=== PATIENT | female | born 1970 | race Asian ===

== ENCOUNTER 2022-08-10 09:08 | Emergency (ER) | payer OTHER, SELFPAY ==
[2022-08-10 09:36] VITALS: BP 138/74; PULSE 73; RESP 15; TEMP 36.4; O2SAT 100; BMI 22.3
--- NOTE | 2022-08-10 09:49 | ED_ITS ---
HPI - Abdominal Pain General Chief Complaint: Abdominal Pain Stated Complaint: pain in upper ABD Time Seen by Provider: 08/10/22 09:32 Source: patient Mode of arrival: Ambulatory History of Present Illness HPI narrative: 52-year-old female nonsmoker without chronic medical problems presents with a chief complaint of a crampy type upper abdominal pain with radiation to her back started just before 8:00 a.m. this morning. She states it is worse when she moves and seems to improve with rest. She was able to drink some water and did not seem to affect her symptoms whatsoever. She denies any history of the same. She denies any chest pain or shortness of breath. She is had no nausea, vomiting nor diarrhea or constipation. She denies any significant alterations in her diet, recent travel, injury or history of blood clot. She denies any exertional symptoms nor intolerance of exercise. Related Data Previous Rx's Medication Instructions Recorded pantoprazole 40 mg tablet,delayed 40 mg PO DAILY #30 tabs 08/10/22 release (Protonix) Allergies Allergy/AdvReac Type Severity Reaction Status Date / Time No Known Drug Allergies Allergy Verified 08/10/22 09:36 Review of Systems Review of Systems Narrative: GENERAL: Denies chills, fatigue, malaise, fever, sweats. HEENT: Denies sinus pain, ear pain, sore throat, difficulty swallowing, dizziness. RESPIRATORY: Denies dyspnea, cough, wheezing, hemoptysis, sputum. CARDIOVASCULAR: Denies chest pain, palpitations, orthopnea, edema, GASTROINTESTINAL: See HPI : Denies dysuria, frequency, incontinence, hematuria, urinary retention. MUSCULOSKELETAL: denies weakness, joint pain, or bony pain SKIN: Denies rash, skin lesions, or other NEUROLOGIC: Denies weakness, headache, numbness, change in speech, confusion, seizures, incoordination. PSYCHIATRIC: No concerning psychosocial issues. 12 point review of systems is negative except for those stated above Exam Narrative Exam Narrative: GENERAL: [52] year old patient appears stated age. Well-developed patient, in mild distress. HEAD: Atraumatic. Normocephalic. EYES: Pupils equal round and reactive. Extraocular motions intact. No scleral icterus. No injection or drainage. ENT: Nose without bleeding, purulent drainage. Throat without erythema, tonsillar hypertrophy or exudate. Airway patent. NECK: Trachea midline. Non tender CARDIOVASCULAR: Regular rate and rhythm without murmurs, gallops, or rubs. RESPIRATORY: Clear to auscultation. Breath sounds equal bilaterally. No wheezes, rales, or rhonchi. GASTROINTESTINAL: Abdomen soft, non-tender, nondistended. EXTREMITIES: No edema or joint tenderness. BACK: Nontender without deformity or crepitance. No flank tenderness. NEURO: AOx3. SKIN: No rash or erythema of visible areas Initial Vital Signs Initial Vital Signs: Vital Signs Temperature 97.5 F L 08/10/22 09:36 Pulse Rate 73 08/10/22 09:36 Respiratory Rate 15 08/10/22 09:36 Blood Pressure 138/74 08/10/22 09:36 Pulse Oximetry 100 08/10/22 09:36 Oxygen Delivery Method 08/10/22 09:36 Course Orders Ordered: Discontinued Medications Al Hydrox/Mg Hydrox/Simethicone 20 ml/ Lidocaine HCl 15 ml 0 ml PO NOW ONE Stop: 08/10/22 09:55 Last Admin: 08/10/22 10:03 Dose: 35 ml Documented By: BRODY Sodium Chloride (Normal Saline 0.9%) 1,000 mls @ 1,000 mls/hr IV BOLUS ONE Stop: 08/10/22 10:53 Last Infusion: 08/10/22 11:40 Dose: 0 mls/hr Documented By: Admin: 08/10/22 10:04 Dose: 1,000 mls/hr Documented By: BRODY Pantoprazole Sodium (Pantoprazole 40 Mg Vial) 40 mg IV NOW ONE Stop: 08/10/22 09:55 Last Admin: 08/10/22 10:03 Dose: 40 mg Documented By: BRODY Reevaluation(s) Reevaluation #1: Improvement after GI cocktail and Protonix Vital Signs Vital signs: Vital Signs - 8 hr 08/10/22 09:36 08/10/22 10:49 08/10/22 11:00 Temperature 97.5 F L Pulse Rate 73 62 Respiratory Rate 15 20 Blood Pressure 138/74 145/77 H Pulse Oximetry 100 100 Oxygen Delivery Method Room Air 08/10/22 11:00 Temperature Pulse Rate 61 Respiratory Rate Blood Pressure Pulse Oximetry 99 Oxygen Delivery Method MDM - Abdominal Pain Lab Data Result diagrams: 08/10/22 09:50 08/10/22 09:50 Labs: Lab Results 08/10/22 08/10/22 08/10/22 Range/Units 09:50 09:50 09:50 WBC 6.2 (4.5-11.0) X10^3/uL RBC 4.44 (4.0-5.2) X10^6/uL Hgb 13.9 (12.0-16.0) g/dL Hct 40.5 (36-46) % MCV 91.2 (80-100) fL MCH 31.3 (26-34) PG MCHC 34.4 (30-36) % RDW 12.9 (11.6-14.8) % Plt Count 319 (150-400) X10^3/uL Neut % (Auto) 71.3 (50-75) % Lymph % (Auto) 14.2 L (25-40) % [place] % (Auto) 10.0 (3-14) % Eos % (Auto) 3.8 (2-4) % Baso % (Auto) 0.7 (0-2) % Neut # (Auto) 4400 (5093-6841) /uL Lymph # (Auto) 900 L (8900-4259) /uL [facility] # (Auto) 600 (0-900) /uL Eos # (Auto) 200 (0-450) /uL Baso # (Auto) 0 (0-100) /uL Sodium 136 L (137-145) mmol/L Potassium 4.0 (3.4-5.1) mmol/L Chloride 98 (98-107) mmol/L Carbon Dioxide 28 (22-32) mmol/L BUN 12 (7-17) mg/dL Creatinine 0.80 (0.52-1.04) mg/dL Estimated GFR > 60 (>60) mL/min BUN/Creatinine Ratio 15.0 (6-22) Glucose 97 (70-100) mg/dL Calcium 9.2 (8.4-10.2) mg/dL Total Bilirubin 0.8 (0.2-1.3) mg/dL AST 37 H (14-36) IU/L ALT 25 (<35) IU/L Alkaline Phosphatase 70 (38-126) U/L Total Creatine Kinase 127 (30-135) U/L CK-MB (CK-2) 0.99 (<2.37) ng/mL CK-MB (CK-2) Rel Index 0.8 L (1.5-5.0) % Troponin I < 0.012 (0.01-0.034) ng/mL Total Protein 9.1 H (6.3-8.2) g/dL Albumin 4.8 (3.5-5.0) g/dL Globulin 4.3 H (1.7-4.1) g/dL Albumin/Globulin Ratio 1.1 (1.0-2.8) Lipase 63 (23-300) U/L Point of care testing: Urine Dip Bedside Urine Glucose Negative Bedside Urine Bilirubin - Negative Bedside Urine Ketone - Negative Urine Specific [place] 1.005 Bedside Urine Occult Blood - Negative Bedside Urine pH 6.5 Bedside Urine Protein - Negative Bedside Urine Urobilinogen - Negative Bedside Urine Nitrite - Negative Bedside Urine Leukocytes - Negative Esterase Imaging Data US - abdomen: Radiologist's Impression: [address] [address] Ultrasound Report Signed Patient: Thea Matute MR#: [id number] : 1970 Acct:[id number] Age/Sex: 52 / F Date of Service: 08/10/22 Loc: ED Accession Number: [id number] ?? Procedure: US abdomen limited Ordering Provider: Fracisco Leyva D.O. PROCEDURE:? US ABDOMEN LIMITED ? INDICATIONS:? epigastric pain ? TECHNIQUE:? Real-time scanning was performed of the abdominal and retroperitoneal organs, with image documentation.? ? COMPARISON:? None. ? FINDINGS:? ? Liver:? Liver is normal in size and homogeneous in echotexture.? ? Gallbladder:? The gallbladder wall measures 2 mm in diameter.? 3 polyps are visualized within the gallbladder fundus, the largest of which measures 8 x 7 x 9 mm.? No pericholecystic fluid or sonographic Ruffin sign.? ? Biliary ducts:? Intrahepatic bile ducts are non-dilated.? Extrahepatic bile duct caliber measures 4 mm.? Normal is 6-7 mm or less in diameter, or 10 mm or less post-cholecystectomy.? ? Pancreas:? Visualized portions of the pancreas are sonographically normal.? ? IMPRESSION:? Gallbladder polyps, the largest of which measures up to 9 mm in diameter.? Annual sonographic follow-up recommended.? Additionally, surgical consultation could be considered for prophylactic cholecystectomy.? No findings to suggest acute cholecystitis or choledocholithiasis. ? Dictated by: Martina Jain M.D. on 08/10/2022 at 11:58 ? ? Approved by: Martina Jain M.D. on 08/10/2022 at 12:05 ? Abdominal x-ray: Radiologist's Impression: [address] [address] XRay Report Signed Patient: Thea Matute MR#: [id number] : 1970 Acct:[id number] Age/Sex: 52 / F Date of Service: 08/10/22 Loc: ED Accession Number: [id number] ?? Procedure: XR acute abdomen series Ordering Provider: Fracisco Leyva D.O. PROCEDURE:? XR ACUTE ABDOMEN SERIES ? INDICATIONS:? abdominal pain, epigastric, colicky ? TECHNIQUE:? One view chest and two views of the abdomen were acquired.? ? COMPARISON:? None. ? FINDINGS:? ? Surgical changes and devices:? None.? ? Chest:? Lungs are clear.? Heart size is normal.? No pleural effusions.? No pneumoperitoneum.? ? Abdomen:? Bowel gas pattern is normal.? No suspicious calcifications.? Visualized solid organ contours appear normal.? ? Bones:? No suspicious bony lesions.? ? IMPRESSION:? No acute cardiopulmonary or intra-abdominal findings. ? ? Dictated by: Martina Jain M.D. on 08/10/2022 at 13:14 ? ? Approved by: Martina Jain M.D. on 08/10/2022 at 13:14 ? [facility] Narrative Medical decision making narrative: 52-year-old female without chronic medical history presents with epigastric pain Multiple etiologies for patient's symptoms considered include, but not limited to: [Bowel obstruction versus kidney stone versus diverticulitis versus gallbladder disease versus pancreatitis versus GI intolerance of antibiotics Patient's symptoms improved over duration of stay with above-stated therapies. History, physical exam, labs, imaging, and response to therapies have been reassuring. Ultrasound demonstrates no obvious cholecystitis or stones but does mentioned a rather large polyp Acute abdominal series demonstrates no obstructive process Findings and discharge diagnosis discussed with patient/family followed by verbalization of understanding Return precautions discussed with patient/family whom verbalize understanding. Pain has been well controlled and patient is tolerating oral hydration. Discharge Plan Departure Patient Disposition: Home Clinical Impression: Acute epigastric pain Instructions: DI for Epigastric Pain Activity Restrictions/Additional Instructions: *You have been diagnosed with [abdominal pain] * As we discussed your history and physical exam as well as labs and imaging are very reassuring. There is no evidence of any severe diagnoses that would require a specific or immediate intervention. *What to do: *Please continue to take your regular medications as directed. * *Please follow up with your primary care provider in 2-3 days, call for an appointment. Let them know you were seen in the Emergency Department and that we ask that you be seen in follow up. We will electronically transmit a record of today's note if your PCP is in our system *Please consider a clear liquid diet for the next 24-48 hours and then slowly advance to regular as tolerated. Also, try to avoid alcohol, nicotine, caffeine, spicy, acidic or fatty foods as this may worsen your symptoms *If you do not have a primary care provider please contact the [facility] Resource line at [phone]. They will ask some questions about your medical history and help get you set up with a doctor in the community. *Return to Emergency Department if you should have any new, worsening or concerning symptoms, such as [fever greater than 101 F, shaking chills, worsening pain, persistent vomiting or other bothersome symptoms] Prescriptions: New pantoprazole [Protonix] 40 mg tablet,delayed release (DR/EC) 40 mg PO DAILY Qty: 30 0RF Referrals: Dilshad Downey MD [Physician] - Miscellaneous,MD Gerard [Primary Care Provider] - Visit Report Forms: Patient Portal/API
[2022-08-10 09:59] LABS: Add Manual Diff / Slide Review NO; Basophils Absolute Auto 0 /uL (0-100); Basophils Percent Auto 0.7 % (0-2); Eosinophils Absolute Auto 200 /uL (0-450); Eosinophils Percent Auto 3.8 % (2-4); Hematocrit 40.5 % (36-46); Hemoglobin 13.9 g/dL (12.0-16.0); Lymphocytes Absolute Auto 900 /uL (1100-4500); Lymphocytes Percent Auto 14.2 % (25-40); Mean Corpuscular HGB Conc 34.4 % (30-36); Mean Corpuscular Hemoglobin 31.3 PG (26-34); Mean Corpuscular Volume 91.2 fL (80-100); Monocytes Absolute Auto 600 /uL (0-900); Neutrophils Absolute Auto 4400 /uL (1500-7000); Neutrophils Percent Auto 71.3 % (50-75); Platelet Count 319 X10^3/uL (150-400); Red Blood Cell Count 4.44 X10^6/uL (4.0-5.2); Red Cell Distribution Width 12.9 % (11.6-14.8); White Blood Cell Count 6.2 X10^3/uL (4.5-11.0)
[2022-08-10] MEDS: PANTOPRAZOLE 40 MG VIAL IV (10:03)
[2022-08-10] MEDS: MAG HYDROX/ALUMINUM/SIMETH SUS 20 ML, LIDOCAINE VISCOUS 2% 15 ML PO (10:03)
[2022-08-10] MEDS: SODIUM CHLORIDE 0.9% 1,000 ML 1000 ML IV (10:04)
--- NOTE | 2022-08-10 10:07 | DI.US.S_ITS ---
PROCEDURE: US ABDOMEN LIMITED INDICATIONS: epigastric pain TECHNIQUE: Real-time scanning was performed of the abdominal and retroperitoneal organs, with image documentation. COMPARISON: None. FINDINGS: Liver: Liver is normal in size and homogeneous in echotexture. Gallbladder: The gallbladder wall measures 2 mm in diameter. 3 polyps are visualized within the gallbladder fundus, the largest of which measures 8 x 7 x 9 mm. No pericholecystic fluid or sonographic Ruffin sign. Biliary ducts: Intrahepatic bile ducts are non-dilated. Extrahepatic bile duct caliber measures 4 mm. Normal is 6-7 mm or less in diameter, or 10 mm or less post-cholecystectomy. Pancreas: Visualized portions of the pancreas are sonographically normal. IMPRESSION: Gallbladder polyps, the largest of which measures up to 9 mm in diameter. Annual sonographic follow-up recommended. Additionally, surgical consultation could be considered for prophylactic cholecystectomy. No findings to suggest acute cholecystitis or choledocholithiasis. Dictated by: Martina Jain M.D. on 08/10/2022 at 11:58 Approved by: Martina Jain M.D. on 08/10/2022 at 12:05
[2022-08-10 10:12] LABS: Alanine Aminotransferase 25 IU/L (<35); Albumin 4.8 g/dL (3.5-5.0); Albumin Globulin Ratio 1.1 (1.0-2.8); Alkaline Phosphatase 70 U/L (38-126); Aspartate Aminotransferase 37 IU/L (14-36); Bilirubin Total 0.8 mg/dL (0.2-1.3); Blood Urea Nitrogen 12 mg/dL (7-17); Calcium 9.2 mg/dL (8.4-10.2); Carbon Dioxide 28 mmol/L (22-32); Chloride 98 mmol/L (98-107); Estimated Glomerular Filt Rate > 60 mL/min (>60); Globulin 4.3 g/dL (1.7-4.1); Glucose 97 mg/dL (70-100); HEMOLYSIS 40 (0-50); Lipase 63 U/L (23-300); Sodium 136 mmol/L (137-145); Total Protein 9.1 g/dL (6.3-8.2)
[2022-08-10 10:28] LABS: Creatine Kinase 127 U/L (30-135)
[2022-08-10 10:41] LABS: Troponin I < 0.012 ng/mL (0.01-0.034)
[2022-08-10 10:43] LABS: CKMB % Relative Index 0.8 % (1.5-5.0); Creatine Kinase MB 0.99 ng/mL (<2.37)
[2022-08-10 10:49] VITALS: PULSE 62; RESP 20; O2SAT 100
[2022-08-10 11:00] VITALS: BP 145/77; PULSE 61; O2SAT 99
--- NOTE | 2022-08-10 12:16 | DI.RAD.S_ITS ---
PROCEDURE: XR ACUTE ABDOMEN SERIES INDICATIONS: abdominal pain, epigastric, colicky TECHNIQUE: One view chest and two views of the abdomen were acquired. COMPARISON: None. FINDINGS: Surgical changes and devices: None. Chest: Lungs are clear. Heart size is normal. No pleural effusions. No pneumoperitoneum. Abdomen: Bowel gas pattern is normal. No suspicious calcifications. Visualized solid organ contours appear normal. Bones: No suspicious bony lesions. IMPRESSION: No acute cardiopulmonary or intra-abdominal findings. Dictated by: Martina Jain M.D. on 08/10/2022 at 13:14 Approved by: Martina Jain M.D. on 08/10/2022 at 13:14
[2022-08-10 14:00] VITALS: PULSE 65
[2022-08-10 14:01] VITALS: BP 141/93; PULSE 75; O2SAT 100
== END 2022-08-10 14:08 | disposition home or self-care (01) ==
PROVIDERS: Emergency Provider Emergency Medicine
DX: R10.13 Epigastric pain (principal); R03.0 Elevated blood-pressure reading, without diagnosis of hypertension
CPT/HCPCS: 36415; 74022; 76705; 80053; 81003; 82550; 82553; 83690; 84484; 85025; 93005; 93010; 96374; 99284; C9113

== ENCOUNTER → 2023-06-13 17:21 | Outpatient (CLI) | payer OTHER, SELFPAY ==
[2023-06-15 18:56] LABS: Fecal Immunochemical Test Negative (Negative)
== END ==
PROVIDERS: PCP Family Medicine; Referring Provider Family Medicine; Visit Provider Family Medicine
DX: Z12.11 Encounter for screening for malignant neoplasm of colon (principal)
CPT/HCPCS: 82274

== ENCOUNTER → 2023-06-15 16:39 | Outpatient (CLI) | payer OTHER, SELFPAY ==
[2023-06-15 18:44] LABS: Add Manual Diff / Slide Review NO; Basophils Absolute Auto 0 /uL (0-100); Basophils Percent Auto 0.8 % (0-2); Eosinophils Absolute Auto 300 /uL (0-450); Hematocrit 37.3 % (36-46); Hemoglobin 12.9 g/dL (12.0-16.0); Lymphocytes Absolute Auto 1900 /uL (1100-4500); Lymphocytes Percent Auto 32.6 % (25-40); Mean Corpuscular HGB Conc 34.5 % (30-36); Mean Corpuscular Hemoglobin 31.5 PG (26-34); Mean Corpuscular Volume 91.3 fL (80-100); Monocytes Absolute Auto 500 /uL (0-900); Monocytes Percent Auto 9.1 % (3-14); Neutrophils Absolute Auto 2900 /uL (1500-7000); Neutrophils Percent Auto 51.5 % (50-75); Platelet Count 302 X10^3/uL (150-400); Red Blood Cell Count 4.09 X10^6/uL (4.0-5.2); Red Cell Distribution Width 12.7 % (11.6-14.8); White Blood Cell Count 5.7 X10^3/uL (4.5-11.0)
[2023-06-15 19:02] LABS: TSH w/ Reflex to FT4 1.23 uIU/mL (0.47-4.68)
[2023-06-15 19:10] LABS: Erythrocyte Sedimentation Rate 28 MM/HR (0-20)
[2023-06-15 19:23] LABS: Creatinine Urine Random 30.3 mg/dL
[2023-06-15 19:41] LABS: Alanine Aminotransferase 23 IU/L (<35); Albumin 4.3 g/dL (3.5-5.0); Albumin Globulin Ratio 1.2 (1.0-2.8); Alkaline Phosphatase 76 U/L (38-126); Aspartate Aminotransferase 33 IU/L (14-36); BUN Creatinine Ratio 28.6 (6-22); Bilirubin Total 0.4 mg/dL (0.2-1.3); Blood Urea Nitrogen 20 mg/dL (7-17); C-Reactive Protein Quant 0.5 mg/dL (<1.0); Calcium 9.3 mg/dL (8.4-10.2); Carbon Dioxide 29 mmol/L (22-32); Chloride 100 mmol/L (98-107); Estimated Glomerular Filt Rate > 60 mL/min (>60); Globulin 3.6 g/dL (1.7-4.1); Glucose 101 mg/dL (70-100); Lactate Dehydrogenase 228 U/L (120-246); Sodium 135 mmol/L (137-145); Total Protein 7.9 g/dL (6.3-8.2)
[2023-06-15 19:44] LABS: HEMOLYSIS 66 (0-50); Potassium 4.1 mmol/L (3.4-5.1)
[2023-06-15 19:45] LABS: Microalbumin Urine Random < 0.6 mg/dL (0-1.6)
== END ==
PROVIDERS: PCP Family Medicine; Referring Provider Family Medicine; Visit Provider Family Medicine
DX: R22.9 Localized swelling, mass and lump, unspecified (principal); Z71.89 Other specified counseling; N95.1 Menopausal and female climacteric states; I10 Essential (primary) hypertension
CPT/HCPCS: 36415; 80053; 82043; 82570; 83615; 84443; 85025; 85651; 86140

== ENCOUNTER → 2023-06-16 09:22 | Outpatient (CLI) | payer OTHER, SELFPAY ==
--- NOTE | 2023-06-16 | DI.MG.S_ITS ---
BILATERAL DIGITAL SCREENING MAMMOGRAM 3D/2D WITH CAD: 06/16/2023 CLINICAL: Routine screening. Default Baseline. No prior exams were available for comparison. Both breasts are heterogeneously dense, which may obscure small masses (category c / 51-75% glandular tissue). Current study was also evaluated with a Computer Aided Detection (CAD) system. No significant masses, calcifications, or other findings are seen in either breast. IMPRESSION: NEGATIVE There is no mammographic evidence of malignancy. A 1 year screening mammogram is recommended. Based on the Tyrer Cuzick model (a risk assessment model) the patient's lifetime risk is 9.5% and her 10 year risk is 2.4%. According to the ACR, ACS, and NCCN guidelines, an annual breast MRI exam along with mammogram is recommended if the patient's lifetime risk is 20% or greater. This exam was interpreted at Station ID: [id number]. NOTE: For mammograms, a report in lay terms will be sent to the patient. Approximately 15% of breast malignancies will not be visualized mammographically. In the management of a palpable breast mass, a negative mammogram must not discourage biopsy of a clinically suspicious lesion. Electronically Signed By: López block/jerod:06/18/2023 09:09:20 letter sent: Normal Exam ACR BI-RADS Category 1: Negative [id number]
== END ==
PROVIDERS: PCP Family Medicine; Referring Provider Family Medicine; Visit Provider Family Medicine
DX: Z12.31 Encounter for screening mammogram for malignant neoplasm of breast (principal)
CPT/HCPCS: 77063; 77067

== ENCOUNTER → 2023-07-16 15:16 | Outpatient (CLI) | payer OTHER, SELFPAY ==
--- NOTE | 2023-07-16 15:19 | DI.US.S_ITS ---
PROCEDURE: US EXTREMELY NONVASC UPPER RT INDICATIONS: SUP/MID ANT FOREARM LUMP. POST ELBOW LUMP. TECHNIQUE: Real-time scanning was performed of the right elbow, with image documentation. COMPARISON: None. FINDINGS: No significant soft tissue abnormality is seen at the patient indicated palpable areas of concern at the superior/mid anterior forearm at the posterior elbow. IMPRESSION: No significant sonographic abnormality. If symptoms persist, consider further evaluation with MRI or CT. Approved by: Gigi Hutchinson M.D. on 07/16/2023 at 20:21
--- NOTE | 2023-07-16 15:19 | DI.US.S_ITS ---
PROCEDURE: US SOFT TISSUE HEAD AND NECK INDICATIONS: BILATERAL TEMPORAL AND SUBMANDIBULAR GLAND AREA LUMPS AND INFERIOR MANDIBLE BILATERAL LUMPS. TECHNIQUE: Real-time scanning was performed of the neck region of interest, with image documentation. COMPARISON: None. FINDINGS: The parotid and submandibular glands are within normal limits. No lymphadenopathy. IMPRESSION: No abnormalities are identified within the areas of interest. Dictated by: Zach Person M.D. on 07/16/2023 at 16:57 Approved by: Zach Person M.D. on 07/16/2023 at 16:58
--- NOTE | 2023-07-16 15:19 | DI.US.S_ITS ---
PROCEDURE: US EXTREMITY NONVASC UPPER LT INDICATIONS: SUPERIOR/MEDIAL LUMP FOREARM TECHNIQUE: Real-time scanning was performed of the left forearm, with image documentation. COMPARISON: [facility], US, US EXTREMELY NONVASC UPPER RT, 07/16/2023, 16:10. FINDINGS: At the patient indicated palpable area of concern at the superior medial left forearm, no significant sonographic abnormality is seen. IMPRESSION: No significant sonographic abnormality. If symptoms persist, consider further evaluation with MRI or CT. Approved by: Gigi Hutchinson M.D. on 07/16/2023 at 20:22
--- NOTE | 2023-07-16 15:19 | DI.US.S_ITS ---
PROCEDURE: US ABDOMEN LIMITED INDICATIONS: MIDLINE EPIGASTRIC-UMBILICUS LUMP(S). BILATERAL FLANK LUMPS. TECHNIQUE: Real-time scanning was performed of the abdominal wall in the regions of interest, with image documentation. COMPARISON: [facility], , US ABDOMEN LIMITED, 08/10/2022, 10:42. FINDINGS: No soft tissue abnormalities are seen within the areas of concern. IMPRESSION: No soft tissue abnormalities are seen within the areas of concern. Dictated by: Zach Person M.D. on 07/16/2023 at 16:56 Approved by: Zach Person M.D. on 07/16/2023 at 16:56
== END ==
PROVIDERS: PCP Family Medicine; Referring Provider Family Medicine; Visit Provider Family Medicine
DX: R22.1 Localized swelling, mass and lump, neck (principal); R22.2 Localized swelling, mass and lump, trunk; R22.33 Localized swelling, mass and lump, upper limb, bilateral
CPT/HCPCS: 76536; 76705; 76882

== ENCOUNTER 2024-07-09 17:16 | Emergency (ER) | payer OTHER, SELFPAY ==
[2024-07-09] VITALS (9 sets, daily range): BP systolic 153–189; BP diastolic 85–105; PULSE 59–81; RESP 11–19; TEMP 36.9–37.1; O2SAT 99–100; BMI 22.8
--- NOTE | 2024-07-09 17:32 | DI.RAD.S_ITS ---
PROCEDURE: XR CHEST 1V INDICATIONS: chest pain TECHNIQUE: One view of the chest was acquired. COMPARISON: None. FINDINGS: Surgical changes and devices: None. Lungs and pleura: Lungs are clear. No pleural effusions or pneumothorax. Mediastinum: Mediastinal contours appear normal. Heart size is normal. Bones and chest wall: No suspicious bony lesions. Overlying soft tissues appear unremarkable. IMPRESSION: No acute cardiopulmonary abnormality is seen. Dictated by: Ana George M.D. on 07/09/2024 at 17:57 Approved by: Ana George M.D. on 07/09/2024 at 17:57
--- NOTE | 2024-07-09 17:32 | EKG_ITS ---
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
[2024-07-09 18:07] LABS: Add Manual Diff / Slide Review NO; Basophils Absolute Auto 0 /uL (0-100); Basophils Percent Auto 0.7 % (0-2); Eosinophils Absolute Auto 300 /uL (0-450); Hematocrit 39.5 % (36-46); Hemoglobin 13.3 g/dL (12.0-16.0); Lymphocytes Absolute Auto 1900 /uL (1100-4500); Lymphocytes Percent Auto 35.7 % (25-40); Mean Corpuscular HGB Conc 33.6 % (30-36); Mean Corpuscular Hemoglobin 30.6 PG (26-34); Mean Corpuscular Volume 91.2 fL (80-100); Monocytes Absolute Auto 400 /uL (0-900); Monocytes Percent Auto 7.6 % (3-14); Neutrophils Absolute Auto 2600 /uL (1500-7000); Platelet Count 297 X10^3/uL (150-400); Red Blood Cell Count 4.33 X10^6/uL (4.0-5.2); Red Cell Distribution Width 12.5 % (11.6-14.8); White Blood Cell Count 5.2 X10^3/uL (4.5-11.0)
[2024-07-09 18:12] LABS: INR 0.9 (0.9-1.3); Prothrombin Time 10.4 SECONDS (9.4-12.5)
[2024-07-09 18:14] LABS: PTT Partial Thromboplastin Tim 41 SECONDS (25.1-36.5)
[2024-07-09 18:17] LABS: Alanine Aminotransferase 21 IU/L (<35); Albumin 4.5 g/dL (3.5-5.0); Albumin Globulin Ratio 1.3 (1.0-2.8); Alkaline Phosphatase 75 U/L (38-126); Aspartate Aminotransferase 31 IU/L (14-36); BUN Creatinine Ratio 15.5 (6-22); Bilirubin Total 0.6 mg/dL (0.2-1.3); Blood Urea Nitrogen 17 mg/dL (7-17); Calcium 8.9 mg/dL (8.4-10.2); Carbon Dioxide 25 mmol/L (22-32); Chloride 102 mmol/L (98-107); Creatine Kinase 96 U/L (30-135); Estimated Glomerular Filt Rate > 60 mL/min (>60); Globulin 3.6 g/dL (1.7-4.1); Glucose 95 mg/dL (70-100); Lipase 63 U/L (23-300); Magnesium 1.9 mg/dL (1.6-2.3); Sodium 137 mmol/L (137-145); Total Protein 8.1 g/dL (6.3-8.2)
[2024-07-09 18:20] LABS: HEMOLYSIS 52 (0-50)
[2024-07-09 18:29] LABS: NT-proBNP (BNP-Adult 18+) 28 pg/mL (<125); Troponin I < 0.012 ng/mL (0.01-0.034)
--- NOTE | 2024-07-09 21:20 | ED_ITS ---
HPI - Chest Pain General Chief Complaint: Chest Pain Stated Complaint: WIC,hbp,check for walking pneumonia,heavy chest Time Seen by Provider: 07/09/24 20:44 Source: patient Mode of arrival: Ambulatory Limitations: no limitations History of Present Illness HPI narrative: 54-year-old female with no significant past medical history presents by private vehicle from home for 3-4 days of fatigue, elevated blood pressure readings, heavy sensation in the front of her chest. Patient states that multiple staff at the [employer] she works with have had ?walking pneumonia?, and she was concerned that she may have that. Has been taking Kyolic blood pressure supplements for BP prevention. Reports hx heart disease in her father in his 70s Related Data Home Medications Medication Instructions Recorded Confirmed Bioptimizers- Megnesium PO 05/15/23 05/15/23 Breakthrough CBA- Vitamin Complex PO 05/15/23 05/15/23 Vitamin Code- 50+ women PO 05/15/23 05/15/23 multivitamin kyolic- Blood pressure Health PO 05/15/23 Previous Rx's Medication Instructions Recorded triamcinolone acetonide 0.1 % 1 applic topical BID PRN itching, 07/17/23 topical ointment cracking skin #30 grams Allergies Allergy/AdvReac Type Severity Reaction Status Date / Time No Known Drug Allergies Allergy Verified 05/15/23 14:23 Patient History Medical History Depression Family History Mother Hypertension Diabetes mellitus Father Hypertension Heart disease Social History Smoking Status: Never smoker Smoking Status: Never smoker alcohol intake frequency: 0-2 drinks per day Substance Use Type: does not use Exam Initial Vital Signs Initial Vital Signs: Vital Signs Temperature 98.5 F 07/09/24 17:25 Pulse Rate 81 07/09/24 17:25 Respiratory Rate 18 07/09/24 17:25 Blood Pressure 189/105 H 07/09/24 17:25 Pulse Oximetry 99 07/09/24 17:25 Oxygen Delivery Method Room Air 07/09/24 17:25 Const: Awake, alert, no acute distress, nontoxic appearing Cardiac: regular rate, regular rhythm RESP: unlabored, clear bilaterally, no wheezing GI: Soft, nontender, nondistended, no rebound, no guarding MSK: Atraumatic, full range of motion, pulses equal Skin: Warm, Dry, intact, no rashes Neuro: AO x3, CN II-XII grossly intact, moves all extremities Course Orders Ordered: ED Orders 07/09/24 17:32 XR chest 1V Stat EKG-12 Lead Stat 07/09/24 17:57 Complete Blood Count AUTO DIFF Stat Comprehensive Metabolic Panel Stat Lipase Stat Magnesium Stat NT-proBNP (BNP-Adult 18+) Stat PTT Partial Thromboplastin Richard Stat Prothrombin Time INR Stat Troponin & CK Cardiac Panel Stat 07/09/24 21:07 Troponin I Stat Vital Signs Vital signs: Vital Signs - 8 hr 07/09/24 17:25 07/09/24 20:45 07/09/24 20:47 Temperature 98.5 F Pulse Rate 81 74 66 Respiratory Rate 18 17 Blood Pressure 189/105 H Pulse Oximetry 99 99 100 Oxygen Delivery Method Room Air 07/09/24 20:47 07/09/24 21:00 07/09/24 21:01 Temperature Pulse Rate 59 L 59 L Respiratory Rate 11 L 11 L Blood Pressure 167/86 H Pulse Oximetry 100 100 Oxygen Delivery Method Room Air 07/09/24 21:01 Temperature Pulse Rate Respiratory Rate Blood Pressure 154/87 H Pulse Oximetry Oxygen Delivery Method MDM - Chest Pain Differential Diagnosis Differential diagnosis: Likely atypical chest pain, costochondritis and chest pain Lab Data 07/09/24 17:57 07/09/24 17:57 Labs: Lab Results 07/09/24 07/09/24 Range/Units 17:57 21:07 WBC 5.2 (4.5-11.0) X10^3/uL RBC 4.33 (4.0-5.2) X10^6/uL Hgb 13.3 (12.0-16.0) g/dL Hct 39.5 (36-46) % MCV 91.2 (80-100) fL MCH 30.6 (26-34) PG MCHC 33.6 (30-36) % RDW 12.5 (11.6-14.8) % Plt Count 297 (150-400) X10^3/uL Neut % (Auto) 50.0 (50-75) % Lymph % (Auto) 35.7 (25-40) % [place] % (Auto) 7.6 (3-14) % Eos % (Auto) 6.0 H (2-4) % Baso % (Auto) 0.7 (0-2) % Neut # (Auto) 2600 (5688-6801) /uL Lymph # (Auto) 1900 (4464-3124) /uL [place] # (Auto) 400 (0-900) /uL Eos # (Auto) 300 (0-450) /uL Baso # (Auto) 0 (0-100) /uL PT 10.4 (9.4-12.5) SECONDS INR 0.9 (0.9-1.3) APTT 41 H (25.1-36.5) SECONDS Sodium 137 (137-145) mmol/L Potassium 4.0 (3.4-5.1) mmol/L Chloride 102 (98-107) mmol/L Carbon Dioxide 25 (22-32) mmol/L BUN 17 (7-17) mg/dL Creatinine 1.10 H (0.52-1.04) mg/dL Estimated GFR > 60 (>60) mL/min BUN/Creatinine Ratio 15.5 (6-22) Glucose 95 (70-100) mg/dL Calcium 8.9 (8.4-10.2) mg/dL Magnesium 1.9 (1.6-2.3) mg/dL Total Bilirubin 0.6 (0.2-1.3) mg/dL AST 31 (14-36) IU/L ALT 21 (<35) IU/L Alkaline Phosphatase 75 (38-126) U/L Total Creatine Kinase 96 (30-135) U/L Troponin I < 0.012 < 0.012 (0.01-0.034) ng/mL NT-Pro-B Natriuret Pep 28 (<125) pg/mL Total Protein 8.1 (6.3-8.2) g/dL Albumin 4.5 (3.5-5.0) g/dL Globulin 3.6 (1.7-4.1) g/dL Albumin/Globulin Ratio 1.3 (1.0-2.8) Lipase 63 (23-300) U/L Imaging Data Chest x-ray: Radiologist's Impression: PROCEDURE: XR CHEST 1V INDICATIONS: chest pain TECHNIQUE: One view of the chest was acquired. COMPARISON: None. FINDINGS: Surgical changes and devices: None. Lungs and pleura: Lungs are clear. No pleural effusions or pneumothorax. Mediastinum: Mediastinal contours appear normal. Heart size is normal. Bones and chest wall: No suspicious bony lesions. Overlying soft tissues appear unremarkable. IMPRESSION: No acute cardiopulmonary abnormality is seen. Dictated by: Ana George M.D. on 07/09/2024 at 17:57 Approved by: Ana George M.D. on 07/09/2024 at 17:57 ECG Data Interpretation: Normal sinus rhythm at 75 beats per minute. Normal CT, no ST T wave changes, no STEMI MDM Narrative Medical decision making narrative: Several days of the above symptoms. Physical exam is unremarkable, EKG normal sinus rhythm without concerning findings. Overall heart score 2 based on age and history of hypertension. Laboratory work reviewed, troponins negative x2, hemodynamically stable, chest x-ray shows no signs of pneumonia. Patient informed of lab and imaging findings. She was relieved to know that she was not have pneumonia or appeared to be suffering a heart attack. She was counseled to keep a blood pressure diary and bring that to her primary care doctor to see if she needs to start taking additional medications for blood pressure control. Discharge Plan Departure Patient Disposition: Home Clinical Impression: Chest pain, Elevated blood pressure reading Instructions: DI for Chest Pain Activity Restrictions/Additional Instructions: Your blood work, EKG, and chest x-ray did not show any signs of heart attack. Your chest x-ray was clear and did not show any signs of pneumonia. At home I recommend measuring her blood pressure once in the morning and once at night and bringing these results to your primary care doctor to see if you may need to start taking medications for your blood pressure. While you did not have evidence of a heart attack today, since you have a family history of coronary disease (bypass surgery in your father), I do recommend following up with a car shunter. A referral number has been provided. If you notice any new or worsening chest pains please feel free to return to the emergency department for repeat evaluation. Prescriptions: No Action triamcinolone acetonide 0.1 % ointment 1 applic topical BID PRN (Reason: itching, cracking skin) Qty: 30 1RF Rx Instructions: Use for up to 2 weeks, then take 5-7 days off [employer] (ABAM) Incentiveizers- Megnesium Breakthrough PO Vitamin Code- 50+ women multivitamin PO CBA- Vitamin Complex PO Referrals: Luis Felipe Shepherd MD [Physician] - Kat Keita DO [Primary Care Provider] - Stand Alone Forms: Patient Portal/API/Survey, Work Release Note
[2024-07-09 21:46] LABS: Troponin I < 0.012 ng/mL (0.01-0.034)
== END 2024-07-09 22:13 | disposition home or self-care (01) ==
PROVIDERS: Emergency Medicine; Emergency Provider Emergency Medicine; PCP Family Medicine
DX: R07.9 Chest pain, unspecified (principal); R03.0 Elevated blood-pressure reading, without diagnosis of hypertension
CPT/HCPCS: 36415; 71045; 80053; 82550; 83690; 83735; 83880; 84484; 85025; 85610; 85730; 93005; 99284